=== PATIENT | male | born 1930 | race Caucasian/White ===

== ENCOUNTER 2016-08-10 05:42 | Day surgery (SDC) | payer OTHER ==
[~2016-08-10 05:42] MED LIST: ceFAZolin 2 GM/DEXTROSE 100 ML IV ONE
[2016-08-10] MEDS ORDERED: LIDOCAINE 1% 5 ML SDV ONE (05:49)
[2016-08-10] MEDS ORDERED: CEFAZOLIN 2 GM/DEXTROSE/100 ML BAG IV ONE (05:50)
[2016-08-10] MEDS ORDERED: MIDAZOLAM 2 MG/2 ML VIAL ONE (07:18)
[2016-08-10] MEDS ORDERED: PROPOFOL 200 MG/20 ML VIAL ONE (07:21)
[2016-08-10] MEDS ORDERED: fentaNYL 250 MCG/5 ML INJ ONE (07:34)
[2016-08-10] MEDS ORDERED: PHENYLEPHRINE HCL 100 MCG/ML SYR ONE (08:30)
[2016-08-10] MEDS ORDERED: ONDANSETRON 4 MG/2 ML VIAL ONE (08:30)
[2016-08-10] MEDS ORDERED: DEXAMETHASONE 4 MG/ML VIAL ONE (08:30)
[2016-08-10] MEDS ORDERED: LIDOCAINE 2% 5 ML SDV ONE (08:30)
[2016-08-10] MEDS ORDERED: SUGAMMADEX SODIUM 200 MG/2 ML VIAL IVP ONE (08:31)
[2016-08-10] MEDS ORDERED: HYDROCODONE/APAP 5/325 TAB PO PRN (09:40)
--- NOTE | 2016-08-10 12:20 | GOP ---
[f rep st] OPERATIVE REPORT DATE OF OPERATION: 08/10/2016 SURGEON: Genesis Awan MD CARDIAC REHABILITATION PROGRAM DIRECTOR: Emmie Andrea PA-C. ANESTHESIA: General. ANESTHESIOLOGIST: . PREOPERATIVE DIAGNOSIS: Right inguinal hernia. POSTOPERATIVE DIAGNOSIS: 1. Right indirect inguinal hernia. 2. Left direct inguinal hernia. PROCEDURE PERFORMED: Laparoscopic bilateral inguinal hernia repair with mesh. FINDINGS: SPECIMENS: None. ESTIMATED BLOOD LOSS: 10 cc. INDICATIONS: Venkat Kurtz is an 86-year-old man who noticed a bulge by his right groin. DESCRIPTION OF PROCEDURE: Venkat was brought into the operating room, placed supine on the table, an d general anesthesia was administered. His abdomen was prepped and draped in the usual sterile fashi on. I infiltrated all sites with 0.5% Marcaine prior to making incisions. I made an incision beneat h the umbilicus. I dissected down through the subcutaneous tissues until I encountered the anterior rectus sheath. I divided this. I swept the rectus muscles laterally, and developed the plane above his peritoneum. I directed the balloon tipped trocar toward his pubis. I performed hand insufflatio n under visualization with a camera. I exchanged the dissecting balloon for the working balloon. Un tara direct vision, I placed a 5 mm pubic trocar and a 5 mm trocar between the first and second trocar s. I cleared the investing tissue away from the pubic tubercle, identified the peritoneum which was extremely stuck on the right side. I pulled this down. There was a breach in the peritoneum. I mayito laurence hemoclips to close this. There was no direct hernia. He did have an indirect hernia. I reduced the large hernia sac. The epigastric vessels were kept anterior to the plane. I then placed a piec e of self fixating laparoscopic ProGrip mesh and unrolled it to cover the direct, indirect, and femor al spaces. I tacked this to the pubic tubercle and anteriorly. In a similar fashion, I explored the left side. On the left side, he had a direct hernia. He did not have an indirect hernia. Again, I placed a piece of laparoscopic self-fixating ProGrip mesh to cover and unrolled it to cover the dire ct, indirect, and femoral spaces. This was tacked to the pubic tubercle and anteriorly. The preperi toneal space was allowed to desufflate. I removed the trocars. I closed the fascia at the 10 mm tro car site with 0 Vicryl. I closed all skin with 4-0 Monocryl. Dermabond applied. He was awakened in the operating room, extubated, transferred to PACU in stable condition. /[id number]/MODL
== END 2016-08-10 10:15 | disposition home or self-care (01) ==
LOC: FSGY 05:42
PROVIDERS: ATTEND Surgery
PROC: 0YUA4JZ Supplement Bilateral Inguinal Region with Synthetic Substitute, Percutaneous Endoscopic Approach (ICD-10-PCS; principal; 2016-08-10 07:30)
DX: K40.20 Bilateral inguinal hernia, without obstruction or gangrene, not specified as recurrent (principal); N40.0 Benign prostatic hyperplasia without lower urinary tract symptoms; J42 Unspecified chronic bronchitis
CPT/HCPCS: 49650; C1727; C1781; J0690; J1100; J2250; J2370; J2405; J2704; J3010

== ENCOUNTER → 2017-01-07 | Outpatient (CLI) | payer OTHER | LOC: FIMAGING 10:17 | PROVIDERS: ATTEND Family Medicine | DX: M81.0 Age-related osteoporosis without current pathological fracture (principal); E55.9 Vitamin D deficiency, unspecified ==